=== PATIENT | female | born 1935 | race Caucasian/White ===

== ENCOUNTER 2022-02-26 13:18 | Inpatient (IN) ==
[2022-02-26] MEDS ORDERED: Acetaminophen IV 1 GM/100ML 100 ML IV ONE (13:29)
[2022-02-26 14:03] LABS: ABS Lymphocytes 1.5 10^3/ul (1.0-4.8); ABS Monocytes 0.8 10^3/ul (0-0.8); ABS Neutrophils 9.3 10^3/ul (1.5-7.7); Eosinophil % 0.3 %; Hematocrit 40 % (35-47); Hemoglobin 13.4 g/dL (12.0-16.0); Lymphocyte % 13.2 %; Mean Corpuscular HGB Conc 33 g/dL (31-36); Mean Corpuscular Hemoglobin 29 pg (27-31); Mean Corpuscular Volume 86 fL (80-97); Mean Platelet Volume 8.6 fL (7.4-10.4); Platelet Count 247 10^3/uL (150-450); Red Blood Count 4.71 10^6 /uL (3.70-4.87); Red Cell Distribution Width 14 % (10-15); White Blood Count 11.6 10^3/uL (3.5-10.8)
[2022-02-26 14:35] LABS: Calcium 9.9 mg/dL (8.6-10.3); Potassium 4.2 mmol/L (3.5-5.0); Total Bilirubin 0.7 mg/dL (0.2-1.0); eGFR CKD-EPI 61.4 (>60)
[2022-02-26] MEDS ORDERED: Iodixanol (CONTRAST) 320 MG/ML 100 ML SDV IV ONE (14:41)
[2022-02-26 17:19] LABS: Urine Appearance Turbid; Urine Bilirubin Negative (Negative); Urine Color Yellow; Urine Glucose 1+ (250mg/dL) (Negative); Urine Ketones 1+ (15mg/dL) (Negative); Urine Nitrite Positive (Negative); Urine Protein 2+ (100 mg/dL) (Negative); Urine Urobilinogen 0.2 (Negative) (Negative)
[2022-02-26] MEDS ORDERED: cefTRIAXone 1 gm/50 mL D5W 1 GM/50 ML BAG IV ONE (17:24)
[2022-02-26 17:25] LABS: Urine Bacteria 2+ (Absent); Urine Red Blood Cell 1+(3-5/hpf) (Absent); Urine White Blood Cell 2+(11-20/hpf) (Absent)
[2022-02-26] MEDS ORDERED: Dextrose 50% Syringe 50 ml 25 GM/50 ML SYRINGE IV PUSH PRN (18:28)
[2022-02-26] MEDS: Enoxaparin 40 MG/0.4 ML SYR SUBCUT SCH (21:11)
[2022-02-26] MEDS ORDERED: Ondansetron 4 mg VIAL 2 MG/ML 2 ml VIAL IV ONE (21:48)
[2022-02-26] MEDS ORDERED: Ondansetron 4 mg VIAL 2 MG/ML 2 ml VIAL IV PRN (23:36)
[2022-02-27 05:35] LABS: ABS Lymphocytes 1.7 10^3/ul (1.0-4.8); ABS Monocytes 0.6 10^3/ul (0-0.8); ABS Neutrophils 6.2 10^3/ul (1.5-7.7); Eosinophil % 0.1 %; Hematocrit 39 % (35-47); Hemoglobin 12.9 g/dL (12.0-16.0); Lymphocyte % 19.6 %; Mean Corpuscular HGB Conc 33 g/dL (31-36); Mean Corpuscular Hemoglobin 29 pg (27-31); Mean Corpuscular Volume 87 fL (80-97); Mean Platelet Volume 8.7 fL (7.4-10.4); Platelet Count 213 10^3/uL (150-450); Red Blood Count 4.52 10^6 /uL (3.70-4.87); Red Cell Distribution Width 13 % (10-15); White Blood Count 8.5 10^3/uL (3.5-10.8)
[2022-02-27 05:45] LABS: Calcium 9.4 mg/dL (8.6-10.3); Potassium 3.9 mmol/L (3.5-5.0)
[2022-02-27 05:51] LABS: eGFR CKD-EPI 63.9 (>60)
[2022-02-27] MEDS: Aspirin EC 81 mg TAB.EC (enteric coated) PO SCH (08:24)
[2022-02-27] MEDS: cefTRIAXone 1 gm/50 mL D5W 1 GM/50 ML BAG IV SCH (17:03)
[2022-02-27] MEDS: Enoxaparin 40 MG/0.4 ML SYR SUBCUT SCH (22:33)
[2022-02-28 06:12] LABS: Hematocrit 37 % (35-47); Hemoglobin 12.5 g/dL (12.0-16.0); Mean Corpuscular HGB Conc 34 g/dL (31-36); Mean Corpuscular Hemoglobin 29 pg (27-31); Mean Corpuscular Volume 86 fL (80-97); Mean Platelet Volume 8.8 fL (7.4-10.4); Platelet Count 210 10^3/uL (150-450); Red Blood Count 4.36 10^6 /uL (3.70-4.87); Red Cell Distribution Width 13 % (10-15); White Blood Count 8.6 10^3/uL (3.5-10.8)
[2022-02-28 06:26] LABS: Calcium 9.1 mg/dL (8.6-10.3); Magnesium 1.6 mg/dL (1.9-2.7); Potassium 3.9 mmol/L (3.5-5.0); eGFR CKD-EPI 59.8 (>60)
[2022-02-28] MEDS ORDERED: Magnesium Sulf 4 GM/100 ML IV 4,000 MG/100 ML BAG IVPB ONE (07:32)
[2022-02-28] MEDS: Aspirin EC 81 mg TAB.EC (enteric coated) PO SCH (08:13)
[2022-02-28] MEDS: cefTRIAXone 1 gm/50 mL D5W 1 GM/50 ML BAG IV SCH (17:17)
[2022-02-28] MEDS: Enoxaparin 40 MG/0.4 ML SYR SUBCUT SCH (20:41)
[2022-03-01 06:16] LABS: Hematocrit 37 % (35-47); Hemoglobin 12.2 g/dL (12.0-16.0); Mean Corpuscular HGB Conc 34 g/dL (31-36); Mean Corpuscular Hemoglobin 29 pg (27-31); Mean Corpuscular Volume 86 fL (80-97); Mean Platelet Volume 8.7 fL (7.4-10.4); Platelet Count 220 10^3/uL (150-450); Red Blood Count 4.26 10^6 /uL (3.70-4.87); Red Cell Distribution Width 13 % (10-15); White Blood Count 8.1 10^3/uL (3.5-10.8)
[2022-03-01 06:49] LABS: Magnesium 2.1 mg/dL (1.9-2.7); Potassium 4.1 mmol/L (3.5-5.0); eGFR CKD-EPI 59.8 (>60)
[2022-03-01] MEDS ORDERED: Senna TAB 8.6 mg TAB PO PRN (07:50)
[2022-03-01] MEDS ORDERED: Polyethylene Glycol 3350 17 GM PACKET PO PRN (07:51)
[2022-03-01] MEDS: Aspirin EC 81 mg TAB.EC (enteric coated) PO SCH (08:37)
[2022-03-01] MEDS ORDERED: Furosemide 20 mg/2 ml IV VIAL IV SLOW PU ONE (08:59)
[2022-03-01] MEDS ORDERED: Iohexol 350 (CONTRAST) 500 ML MDV IV ONE (12:41)
[2022-03-01] MEDS ORDERED: Lactated Ringers 1000 ml BAG 1,000 ML IV ONE (15:58)
[2022-03-01] MEDS: Enoxaparin 40 MG/0.4 ML SYR SUBCUT SCH (20:23)
[2022-03-02 06:24] LABS: Hematocrit 37 % (35-47); Hemoglobin 12.4 g/dL (12.0-16.0); Mean Corpuscular HGB Conc 34 g/dL (31-36); Mean Corpuscular Hemoglobin 29 pg (27-31); Mean Corpuscular Volume 85 fL (80-97); Mean Platelet Volume 8.2 fL (7.4-10.4); Platelet Count 233 10^3/uL (150-450); Red Blood Count 4.32 10^6 /uL (3.70-4.87); Red Cell Distribution Width 13 % (10-15); White Blood Count 8.3 10^3/uL (3.5-10.8)
[2022-03-02 06:51] LABS: Calcium 8.9 mg/dL (8.6-10.3); Potassium 3.7 mmol/L (3.5-5.0); eGFR CKD-EPI 71.5 (>60)
[2022-03-02] MEDS: Aspirin EC 81 mg TAB.EC (enteric coated) PO SCH (07:52)
[2022-03-02] MEDS ORDERED: Insulin GLARGINE 100 un/ml 10 ml VIAL SUBCUT SCH (21:00)
[2022-03-02] MEDS: Enoxaparin 40 MG/0.4 ML SYR SUBCUT SCH (22:07)
[2022-03-03] MEDS: Aspirin EC 81 mg TAB.EC (enteric coated) PO SCH (07:30)
[2022-03-03] MEDS ORDERED: Insulin GLARGINE 100 un/ml 10 ml VIAL SUBCUT SCH (21:00)
[2022-03-03] MEDS: Enoxaparin 40 MG/0.4 ML SYR SUBCUT SCH (21:43)
[2022-03-04] MEDS: Aspirin EC 81 mg TAB.EC (enteric coated) PO SCH (09:35)
[2022-03-04] MEDS: CMCS:SitaGLIPtin 25mg TAB (NF) 25 MG TAB PO SCH (10:00)
[2022-03-04] MEDS: Enoxaparin 40 MG/0.4 ML SYR SUBCUT SCH (20:52)
[2022-03-05] MEDS: CMCS:SitaGLIPtin 25mg TAB (NF) 25 MG TAB PO SCH (08:39)
[2022-03-05] MEDS: Aspirin EC 81 mg TAB.EC (enteric coated) PO SCH (08:39)
[2022-03-05] MEDS: Enoxaparin 40 MG/0.4 ML SYR SUBCUT SCH (21:32)
[2022-03-06] MEDS: CMCS:SitaGLIPtin 25mg TAB (NF) 25 MG TAB PO SCH (08:15)
[2022-03-06] MEDS: Aspirin EC 81 mg TAB.EC (enteric coated) PO SCH (08:16)
[2022-03-06] MEDS ORDERED: Psyllium PAK PO PRN (12:39)
[2022-03-06] MEDS: Enoxaparin 40 MG/0.4 ML SYR SUBCUT SCH (19:55)
[2022-03-07] MEDS: Calcium Carb (TUMS) 500 mg CHEW TAB PO SCH ×2 (01:36→09:00)
[2022-03-07] MEDS: Aspirin EC 81 mg TAB.EC (enteric coated) PO SCH (09:00)
[2022-03-07] MEDS: CMCS:SitaGLIPtin 25mg TAB (NF) 25 MG TAB PO SCH (09:05)
[2022-03-07 12:20] VITALS: BP 145/70
== END 2022-03-07 15:30 | disposition home health service (06) | DRG 690 ==
LOC: ED 13:18 → MED 19:39 → SUATTDRO 19:39 → MED 21:56
PROVIDERS: ADMIT Internal Medicine; ATTEND Internal Medicine

== ENCOUNTER 2022-07-29 10:05 | Observation (INO) ==
[2022-07-29] MEDS ORDERED: Lactated Ringers 1000 ml BAG 1,000 ML IV ONE (10:18)
[2022-07-29 11:01] LABS: ABS Basophils 0.1 10^3/ul (0-0.2); ABS Eosinophils 0.3 10^3/ul (0-0.6); ABS Lymphocytes 2.9 10^3/ul (1.0-4.8); ABS Monocytes 0.6 10^3/ul (0-0.8); ABS Neutrophils 7.1 10^3/ul (1.5-7.7); Eosinophil % 2.9 %; Hematocrit 41 % (35-47); Hemoglobin 13.3 g/dL (12.0-16.0); Lymphocyte % 26.3 %; Mean Corpuscular HGB Conc 33 g/dL (31-36); Mean Corpuscular Hemoglobin 26 pg (27-31); Mean Corpuscular Volume 80 fL (80-97); Mean Platelet Volume 8.5 fL (7.4-10.4); Platelet Count 274 10^3/uL (150-450); Red Blood Count 5.06 10^6 /uL (3.70-4.87); Red Cell Distribution Width 15 % (10-15); White Blood Count 11.1 10^3/uL (3.5-10.8)
[2022-07-29 11:25] LABS: ALT 19 U/L (7-52); Albumin 3.9 g/dL (3.2-5.2); Alkaline Phosphatase 83 U/L (35-149); Blood Urea Nitrogen 24 mg/dL (6-24); CO2 Carbon Dioxide 24 mmol/L (22-32); Calcium 9.3 mg/dL (8.6-10.3); Chloride 103 mmol/L (101-111); Creatine Kinase 82 U/L (10-223); Globulin 4.1 g/dL (2-4); Glucose 198 mg/dL (70-100); Sodium 135 mmol/L (135-145); eGFR CKD-EPI 58.7 (>60)
[2022-07-29 11:37] LABS: Anion Gap 8 mmol/L (2-11)
[2022-07-29 11:38] LABS: TSH Ultra Thyroid Stim Horm 3.53 mcIU/mL (0.34-5.60)
[2022-07-29 12:12] LABS: Urine Appearance Turbid; Urine Bilirubin Negative (Negative); Urine Color Yellow; Urine Glucose Negative (Negative); Urine Ketones Negative (Negative); Urine Nitrite Negative (Negative); Urine Protein 1+ (30 mg/dL) (Negative); Urine Specific Gravity 1.015 (1.002-1.030); Urine Urobilinogen 0.2 (Negative) (Negative); Urine pH 5.5 (5.0-9.0)
[2022-07-29 12:18] LABS: Urine Bacteria 3+ (Absent); Urine Red Blood Cell 3+(>10/hpf) (Absent); Urine White Blood Cell 3+(>20/hpf) (Absent)
[2022-07-29 12:38] LABS: Magnesium 1.5 mg/dL (1.9-2.7)
[2022-07-29] MEDS ORDERED: cefTRIAXone 1 gm/50 mL D5W 1 GM/50 ML BAG IV ONE (12:39)
[2022-07-29] MEDS ORDERED: Magnesium Sulf 4 GM/100 ML IV 4,000 MG/100 ML BAG IVPB ONE ×2 (13:04→13:05)
[2022-07-29] MEDS ORDERED: Dextrose 50% Syringe 50 ml 25 GM/50 ML SYRINGE IV PUSH PRN (13:05)
[2022-07-29] MEDS: Enoxaparin 40 MG/0.4 ML SYR SUBCUT SCH (13:36)
[2022-07-29] MEDS: Aspirin EC 81 mg TAB.EC (enteric coated) PO SCH (15:57)
[2022-07-29] MEDS: CMC:SitaGLIPtin 100 mg TAB (NF) PO SCH (16:02)
[2022-07-29] MEDS: Lidocaine PATCH 5% PATCH TRANSDERM SCH (18:31)
[2022-07-29] MEDS: Nystatin TOP POWDER 15 GM BTL TOPICAL SCH (20:59)
[2022-07-30 08:10] LABS: ABS Basophils 0.1 10^3/ul (0-0.2); ABS Eosinophils 0.3 10^3/ul (0-0.6); ABS Lymphocytes 2.3 10^3/ul (1.0-4.8); ABS Monocytes 0.7 10^3/ul (0-0.8); Eosinophil % 3.4 %; Hematocrit 35 % (35-47); Hemoglobin 11.7 g/dL (12.0-16.0); Lymphocyte % 25.1 %; Mean Corpuscular HGB Conc 33 g/dL (31-36); Mean Corpuscular Hemoglobin 27 pg (27-31); Mean Corpuscular Volume 80 fL (80-97); Mean Platelet Volume 8.4 fL (7.4-10.4); Nucleated Red Blood Cells % 0.1; Platelet Count 233 10^3/uL (150-450); Red Blood Count 4.38 10^6 /uL (3.70-4.87); Red Cell Distribution Width 14 % (10-15); White Blood Count 9.4 10^3/uL (3.5-10.8)
[2022-07-30 08:28] LABS: Calcium 9.1 mg/dL (8.6-10.3); Magnesium 1.4 mg/dL (1.9-2.7)
[2022-07-30] MEDS: Aspirin EC 81 mg TAB.EC (enteric coated) PO SCH (08:34)
[2022-07-30] MEDS: Nystatin TOP POWDER 15 GM BTL TOPICAL SCH ×3 (08:35→21:17)
[2022-07-30] MEDS: CMC:SitaGLIPtin 100 mg TAB (NF) PO SCH (08:36)
[2022-07-30] MEDS: Lidocaine PATCH 5% PATCH TRANSDERM SCH (08:36)
[2022-07-30] MEDS ORDERED: Magnesium Sulf 4 GM/100 ML IV 4,000 MG/100 ML BAG IVPB ONE (09:30)
[2022-07-30] MEDS: Enoxaparin 40 MG/0.4 ML SYR SUBCUT SCH (12:31)
[2022-07-30] MEDS: cefTRIAXone 1 gm/50 mL D5W 1 GM/50 ML BAG IV SCH (13:43)
[2022-07-30] MEDS ORDERED: NS 0.9% IVPB SCH (14:00)
[2022-07-30] MEDS ORDERED: CEFTAZIDIME IVPB SCH (14:00)
[2022-07-30] MEDS: Azithromycin 500 mg/250 ml NS 500 MG/250 ML BAG IVPB SCH (21:17)
[2022-07-31 06:15] LABS: ABS Eosinophils 0.3 10^3/ul (0-0.6); ABS Lymphocytes 2.6 10^3/ul (1.0-4.8); ABS Monocytes 0.5 10^3/ul (0-0.8); ABS Neutrophils 4.9 10^3/ul (1.5-7.7); Eosinophil % 3.2 %; Hematocrit 35 % (35-47); Hemoglobin 11.8 g/dL (12.0-16.0); Lymphocyte % 31.6 %; Mean Corpuscular HGB Conc 34 g/dL (31-36); Mean Corpuscular Hemoglobin 27 pg (27-31); Mean Corpuscular Volume 80 fL (80-97); Mean Platelet Volume 8.3 fL (7.4-10.4); Platelet Count 223 10^3/uL (150-450); Red Blood Count 4.35 10^6 /uL (3.70-4.87); Red Cell Distribution Width 15 % (10-15); White Blood Count 8.4 10^3/uL (3.5-10.8)
[2022-07-31 06:45] LABS: Calcium 8.9 mg/dL (8.6-10.3); Magnesium 1.7 mg/dL (1.9-2.7); Potassium 3.8 mmol/L (3.5-5.0); eGFR CKD-EPI 71.1 (>60)
[2022-07-31] MEDS: Aspirin EC 81 mg TAB.EC (enteric coated) PO SCH (09:04)
[2022-07-31] MEDS: CMC:SitaGLIPtin 100 mg TAB (NF) PO SCH (09:05)
[2022-07-31] MEDS: Lidocaine PATCH 5% PATCH TRANSDERM SCH (09:10)
[2022-07-31] MEDS: Nystatin TOP POWDER 15 GM BTL TOPICAL SCH ×3 (11:12→19:37)
[2022-07-31] MEDS: Enoxaparin 40 MG/0.4 ML SYR SUBCUT SCH (12:12)
[2022-07-31] MEDS: cefTRIAXone 1 gm/50 mL D5W 1 GM/50 ML BAG IV SCH (14:13)
[2022-07-31] MEDS: Azithromycin 500 mg/250 ml NS 500 MG/250 ML BAG IVPB SCH (19:36)
[2022-07-31] MEDS ORDERED: hydrALAZINE 20 mg/ml 1 ML Vial IV IV SLOW PU ONE (23:30)
[2022-08-01] MEDS ORDERED: hydrALAZINE 20 mg/ml 1 ML Vial IV IV SLOW PU PRN (03:14)
[2022-08-01] MEDS: Aspirin EC 81 mg TAB.EC (enteric coated) PO SCH (07:36)
[2022-08-01] MEDS: CMC:SitaGLIPtin 100 mg TAB (NF) PO SCH (07:37)
[2022-08-01] MEDS: Lidocaine PATCH 5% PATCH TRANSDERM SCH (07:38)
[2022-08-01] MEDS: Nystatin TOP POWDER 15 GM BTL TOPICAL SCH (07:40)
[2022-08-01 10:31] LABS: ABS Eosinophils 0.3 10^3/ul (0-0.6); ABS Lymphocytes 2.5 10^3/ul (1.0-4.8); ABS Monocytes 0.5 10^3/ul (0-0.8); ABS Neutrophils 6.5 10^3/ul (1.5-7.7); Eosinophil % 2.9 %; Hematocrit 39 % (35-47); Hemoglobin 12.3 g/dL (12.0-16.0); Lymphocyte % 25.3 %; Mean Corpuscular HGB Conc 32 g/dL (31-36); Mean Corpuscular Hemoglobin 26 pg (27-31); Mean Corpuscular Volume 82 fL (80-97); Mean Platelet Volume 8.8 fL (7.4-10.4); Platelet Count 277 10^3/uL (150-450); Red Blood Count 4.71 10^6 /uL (3.70-4.87); Red Cell Distribution Width 15 % (10-15); White Blood Count 9.8 10^3/uL (3.5-10.8)
[2022-08-01 10:51] LABS: Blood Urea Nitrogen 13 mg/dL (6-24); CO2 Carbon Dioxide 24 mmol/L (22-32); Calcium 9.2 mg/dL (8.6-10.3); Chloride 101 mmol/L (101-111); Glucose 153 mg/dL (70-100); Magnesium 1.5 mg/dL (1.9-2.7); Sodium 136 mmol/L (135-145); eGFR CKD-EPI 73.3 (>60)
[2022-08-01 10:52] LABS: Anion Gap 11 mmol/L (2-11)
[2022-08-01 10:57] VITALS: BP 130/75
== END 2022-08-01 13:00 ==
LOC: EDHOLD 10:05 → ED 10:05 → SUATTDRO 12:41 → MED 18:10
PROVIDERS: ADMIT Internal Medicine; ATTEND Internal Medicine